=== PATIENT | female | born 1975 | race Caucasian/White ===

== ENCOUNTER 2017-05-02 14:08 | Emergency (ER) | payer OTHER ==
[2017-05-02 14:33] LABS: Urine Bilirubin Negative (NEGATIVE); Urine Blood Negative /ul (NEGATIVE); Urine Ketone Negative (NEGATIVE); Urine Nitrite Negative (NEGATIVE); Urine Protein Negative (NEGATIVE); Urine Specific Gravity >=1.030 SP.GR. (1.005-1.010); Urine Urobilinogen Normal (NORMAL)
[2017-05-02] MEDS ORDERED: KETOROLAC TROMETHAMINE 60 MG/2 ML VIAL IM ONE ×2 (14:42→14:55)
[2017-05-02 14:43] LABS: Urine Appearance Clear; Urine Bacteria 1+; Urine Color Yellow; Urine RBC None Seen /hpf (0-5); Urine WBC None Seen /hpf (0-5)
--- NOTE | 2017-05-02 14:47 | ERNOTE ---
ER Female HPI Date of Service: 05/02/17 Stated Complaint: HIP PAIN Presenting Symptoms: other - right flank pain Time Seen by Provider: 05/02/17 14:29 Exam Limitations: no limitations - patient has a history of kidney stones and states that she now has some right flank pain that is somewhat reminiscent of previous kidney stones, patient denies any dysuria Immunizations: IMMUNIZATION HX Immunizations Up to Date Yes History of Influenza Vaccine Yes Hx Pneumococcal Vaccination No Allergies/Adverse Reactions: Allergies aspirin Allergy (Intermediate, Verified 05/02/17 14:22) Other codeine Adverse Reaction (Intermediate, Verified 05/02/17 14:22) Vomiting Home Medications: HOME MEDICATIONS Cefuroxime Axetil [Ceftin] 500 mg PO BID #20 tab 05/02/17 [Last Taken Unknown] Promethazine HCl [Phenergan (Promethazine)] 25 mg PO Q6H PRN #10 tab 05/02/17 [ Last Taken Unknown] metFORMIN HCL [Metformin HCl ER] 1,000 mg PO DAILY 05/02/17 [Last Taken Unknown] traMADol HCL [Ultram] 50 mg PO QID PRN #20 tablet 05/02/17 [Last Taken Unknown] - History of Present Illness Timing: Present: constant, intermittent Quality: Present: moderate Onset Location: Present: right flank Radiation: Present: RLQ Activities at Onset: Present: none Prior Abdominal Problems: Present: similar symptoms - with her kidney stones Associated Symptoms: Present: denies symptoms Review of Systems - Review of Systems Constitutional: Present: See HPI EYE: Present: no symptoms reported ENT: Present: no symptoms reported Respiratory: Present: no symptoms reported Cardiology: Present: no symptoms reported Gastrointestinal/Abdominal: Present: no symptoms reported Genitourinary: Present: See HPI, other - right flank pain Musculoskeletal: Present: no symptoms reported Skin: Present: no symptoms reported Neurological: Present: no symptoms reported Endocrine: Present: no symptoms reported Hematologic/Lymphatic: Present: no symptoms reported Psych: Present: no symptoms reported - Patient's Past Medical History Patient History - Medical: Diabetes Type 2, Kidney stone, Other Patient History - Cardiac/Respiratory: Hypertension, Hyperlipidemia Patient History - Cancer: No Hx of Cancer Patient History - Surgical Procedures: Other Patient History - Other: None LMP (females 10-50): last week - Social History Living Situations: other Abuse History: No History of abuse Psych History: No pertinent hx Smoking Status: Current every day smoker Have you smoked in the past 12 months: Yes Do you dip or chew tobacco: No Alcohol Use: occasionally Drug Use: marijuana - Immunizations Immunizations Up to Date: Yes Hx Pneumococcal Vaccination: No History of Influenza Vaccine: Yes Physical Exam - Physical Exam General Appearance: Present: wd/wn, alert, moderate distress Eye Exam: Normal inspection: bilateral, PERRL: bilateral Ears, Nose, Throat: Present: normal ENT inspection, H, normal pharynx Neck: Present: normal inspection, nontender Respiratory: Present: no respiratory distress, normal breath sounds, no accessory muscle use, chest nontender, lungs clear Cardiovascular/Chest: Present: regular rate, rhythm, no murmur, normal peripheral pulses Gastrointestinal/Abdominal: Present: normal bowel sounds, nontender, nondistended, soft, no organomegaly Rectal Exam: Present: deferred Back Exam: Present: normal range of motion, CVA tenderness (R) Extremity Exam: Present: normal inspection, non-tender, no edema, normal range of motion Neurological Exam: Present: alert, oriented, normal mood/affect Skin Exam: Present: normal color, warm/dry Lymphatic Exam: Present: no adenopathy ED Progress - Results and Orders Patient's Lab Results:: I have reviewed the patient's lab results. - Vital Signs Patient's Vital Signs:: I have reviewed the patient's vital signs. Vital Signs: Vital Signs 05/02/17 14:15 Temperature 36.6 C Pulse Rate 83 Respiratory 18 Rate Blood Pressure 153/92 O2 Sat by Pulse 94 Oximetry - CT/Ultrasound CT/Ultrasound Narrative: CT of the abdomen and pelvis was reviewed by me. - Progress/Reassessment Chief Complaint: Genitourinary Problem Plan - Plan Plan: Patient does not appear to have any kidney stones there is no hydronephrosis and no dilated ureter. She does appear to have pyelonephritis on CT and will be started on antibiotics pain medicine and Phenergan for any nausea and vomiting. She'll follow-up with her family physician as needed. Departure Clinical Impression: Pyelonephritis - Departure Disposition: Home self-care Condition: Good Instructions: Pyelonephritis, Adult, [id number] Referrals: Jefferson Velasquez MD [Primary Care Provider] - Prescriptions: Cefuroxime Axetil [Ceftin] 500 mg PO BID #20 tab Promethazine HCl [Phenergan (Promethazine)] 25 mg PO Q6H PRN #10 tab PRN Reason: nausea/vomiting traMADol HCL [Ultram] 50 mg PO QID PRN #20 tablet PRN Reason: Moderate Pain
[2017-05-02 15:48] VITALS: BP 142/81
== END 2017-05-02 16:29 | disposition home or self-care (01) ==
LOC: ER 14:08
DX: N12 Tubulo-interstitial nephritis, not specified as acute or chronic (principal); F17.200 Nicotine dependence, unspecified, uncomplicated